=== PATIENT | female | born 1960 | race Caucasian/White ===

== ENCOUNTER 2023-04-30 10:41 | Emergency (ER) | payer OTHER ==
[~2023-04-30] VITALS: Ht 154.9 cm; Wt 77.1 kg
[2023-04-30] MEDS ORDERED: GUAIFENESIN/D-METHORPHAN HB 5 ML UDC ONE (12:16)
[2023-04-30] MEDS ORDERED: ACETAMINOPHEN ES 500 MG TABLET ONE (12:17)
[2023-04-30] MEDS ORDERED: IBUPROFEN 400 MG TABLET ONE (12:17)
[2023-04-30] MEDS ORDERED: GUAIFENESIN/D-METHORPHAN HB 5 ML UDC PO ONE (12:30)
[2023-04-30] MEDS ORDERED: ACETAMINOPHEN ES 500 MG TABLET PO ONE (12:30)
[2023-04-30] MEDS ORDERED: IBUPROFEN 400 MG TABLET PO ONE (12:30)
[2023-04-30] MEDS ORDERED: BENZ-13 PO (13:51)
[2023-04-30] MEDS ORDERED: KETO10TA2 PO (13:51)
[2023-04-30] MEDS ORDERED: GUAI1TBM19 PO (13:51)
[2023-04-30 14:11] VITALS: BP 111/55; TEMP 97.8; O2SAT 92
== END 2023-04-30 14:11 | disposition home or self-care (01) ==
LOC: ER 10:45
DX: J06.9 Acute upper respiratory infection, unspecified (principal); R05.9 Cough, unspecified; Z20.822 Contact with and (suspected) exposure to COVID-19
CPT/HCPCS: 99284; 71045; 87426; 87804 ×2; C9803

== ENCOUNTER → 2023-05-05 | Emergency (ER) | payer OTHER ==
[~2023-05-05] VITALS: Ht 154.9 cm; Wt 74.8 kg
[~2023-05-05] MED LIST: ALBU18HF2 INH; ALBUTEROL FS 2.5 MG/3 ML VIAL.NEB NEB ONE; ALBUTEROL FS 2.5 MG/3 ML VIAL.NEB ONE; BENZ-13 PO; GUAI1TBM19 PO; IPRATROPIUM NEB FS 0.5 MG/2.5 ML AMPUL.NEB NEB ONE; IPRATROPIUM NEB FS 0.5 MG/2.5 ML AMPUL.NEB ONE; IV NS 0.9% 1,000 ML IV ONE; KETO10TA2 PO
[2023-05-05 14:17] VITALS: O2SAT 97
[2023-05-05 14:32] VITALS: O2SAT 100
[2023-05-05 14:47] VITALS: BP 132/66; TEMP 98; O2SAT 100
== END | disposition home or self-care (01) ==
LOC: ER 12:21
DX: J06.9 Acute upper respiratory infection, unspecified (principal); R05.9 Cough, unspecified
CPT/HCPCS: 99285; 96360; 71045; 94799; 94640; J7030